=== PATIENT | female | born 1935 | race Caucasian/White ===

== ENCOUNTER 2016-11-26 09:59 | Inpatient (IN) ==
--- NOTE | 2016-11-26 12:31 | EKG Report ---
Test Performed on : 11/26/2016 11:46:05 AM Test Reason : palpitaions, chest discomfort Blood Pressure : / mmHG Vent. Rate : 063 BPM Atrial Rate : 063 BPM P-R Int : 142 ms QRS Dur : 078 ms QT Int : 418 ms P-R-T Axes : 030 035 048 degrees QTc Int : 427 ms Sinus rhythm. with marked sinus arrhythmia. Otherwise normal ECG When compared with ECG of 15-JAN-2016 06:08, premature atrial complexes. are noted T wave amplitude has increased in far lateral precordial leads Clinical Correlation advised Confirmed by Paul Saini DO ([id number]) on 11/29/2016 3:40:02 PM
--- NOTE | 2016-11-26 12:42 | Diag Imaging Result Doc PS360 ---
EXAM: CHEST-2 VIEWS INDICATION: palpitations, chest discomfort TECHNIQUE: 2 views COMPARISON: 01/14/2016 FINDINGS: There is evidence of prior granulomatous disease, stable. The lungs are hyperinflated, stable. The lungs are grossly clear, otherwise. There is no discrete pleural fluid collection or pneumothorax. The cardiomediastinal silhouette and central vasculature are grossly unremarkable. IMPRESSION: Stable COPD changes. No definite acute pathology. Electronically signed by Frantz Ramos 11/26/2016 12:40 PM
[2016-11-26 13:24] LABS: MANUAL DIFF NEEDED? NO
[2016-11-26 13:30] LABS: BASO% 0.3 % (0.0-0.8); EOS# 0.11 X1000 (0.0-0.7); EOS% 1.3 % (0.0-10.0); HEMATOCRIT 39.9 % (37.0-47.0); HEMOGLOBIN 13.1 g/dL (12.0-16.0); IMM GRAN# 0.03 X1000 (0.0-0.04); IMM GRAN% 0.3 % (0.0-0.5); LYMPH# 1.68 X1000 (1.2-3.4); LYMPH% 19.6 % (20.5-51.1); MCH 33.2 PG (27-31); MCHC 32.8 g/dL (33-37); MONO# 0.54 X1000 (0.11-0.59); MONO% 6.3 % (1.7-9.3); MPV 10.4 FL (7.4-10.4); NEUT% 72.2 % (42.2-75.2); PLT 237 X1000 (130-400); RBC 3.95 XMIL (4.2-5.4)
[2016-11-26] MEDS: M.V.I.-12 10 ML, FOLIC ACID 1 MG, MAGNESIUM SULFATE 1 GM, THIAMINE 100 MG in NS 1,000 ML IV SCH (14:34)
[2016-11-26 14:35] LABS: ALBUMIN 4.2 g/dL (3.5-5.0); CALCIUM 8.8 mg/dL (8.8-10.2); POTASSIUM 4.5 mmol/L (3.5-5.1); TOTAL BILIRUBIN 0.22 mg/dL (0.20-1.00); TOTAL PROTEIN 6.6 g/dL (6.3-8.3)
[2016-11-26] MEDS ORDERED: ATIVAN PO PRN (14:42)
[2016-11-26] MEDS: MIRALAX PO SCH ×2 (17:44→20:17)
--- NOTE | 2016-11-26 18:28 | CONSULTATION ---
DATE OF CONSULTATION: 11/26/2016 IMPRESSION: 1. Tachycardic palpitations and shortness of breath with exertion walking across the room on room air. Patient in sinus rhythm with occasional premature atrial complex. 2. Severe chronic obstructive pulmonary disease requiring home oxygen. Patient inconsistently uses home oxygen. 3. History of atrial fibrillation with prior ablation in [place] 4 years ago. 4. Reported history of gastroparesis. The patient has maintained stable weight. Gastric emptying study in 2013 was unremarkable. 5. Chronic cigarette use. It not clear if she still smokes or not. RECOMMENDATIONS: 1. I would measure oxygen saturations when patient ambulates to see if they are dropping and watch her cardiac rhythm at the same time. 2. Importance of smoking cessation discussed. 3. If no arrhythmias manifest, reasonable to discharge the patient to home. HISTORY: This 81-year-old, white female with past history of severe COPD, previous atrial fibrillation treated with ablation in [place] 4 years ago, and gastroparesis was admitted for further evaluation of palpitations and shortness of breath which tended to occur with ambulation short distances across the house. She is a rather vague historian who tends to site her diagnoses rather than describe her symptoms. She relates that for the past week, she has had more shortness of breath with exertion along with sensation that her heart is going fast. There has been no angina nor syncope. She came to the emergency room with foregoing complaints and was admitted for further workup. It is noteworthy that she was hospitalized 10 months ago for evaluation of chest symptoms and had echocardiography showing normal left ventricular systolic function as well as pharmacologic myocardial perfusion study which was negative for ischemia. She seems unaware of her diagnosis of COPD. She also makes it difficult to understand if she still smokes or not. PAST MEDICAL HISTORY: 1. Severe COPD requiring home oxygen. 2. Previous atrial fibrillation. Patient is status post ablation 4 years ago. 3. Reported gastroparesis. Gastric emptying study 2013 reported normal. 4. History of volvulus. 5. History of brain aneurysm. PAST SURGICAL HISTORY: Hysterectomy, carpal tunnel syndrome with bilateral carpal tunnel release, cholecystectomy and ablation of atrial fibrillation done at [facility]. ALLERGIES: She has no known drug allergies. MEDICATIONS PRIOR TO ADMISSION: As listed. SOCIAL HISTORY: She is . She has history of longstanding cigarette use, but is rather vague as to the amount of cigarettes she has smoked and also somewhat vague as to whether or not she still smokes or not. She does not drink alcohol. FAMILY HISTORY: Negative for premature coronary disease. REVIEW OF SYSTEMS: Pulmonary: Noteworthy for exertional dyspnea. She has some nonproductive cough. There has been no orthopnea. Gastrointestinal: Some tendency for postprandial nausea. Constitution: Negative/noncontributory. Remainder of review of systems negative/noncontributory with 14 total systems reviewed. PHYSICAL EXAMINATION: General: This is a thin, elderly female in no distress. Vital signs: Blood pressure 119/56, heart rate 61 and regular. HEENT: Extraocular movements intact. Mucous membranes are moist. Neck: Supple with normal jugular venous pressures suggested on inspection of neck veins. Chest: Auscultation chest reveals diffusely diminished breath sounds. Scant expiratory rhonchi noted that clear with cough. Cardiac: Reveals distant heart sounds. Irregular rate and rhythm is demonstrated without appreciable murmur or gallop. Abdomen: Soft, nontender. Bowel sounds are normal. Extremities: Without edema. Neurologic: Reveals her to be alert and fully oriented. Speech is fluent. Moves all 4 extremities equally well. Skin: Warm and dry. Psychiatric: Reveals her to be mildly anxious. DIAGNOSTIC DATA: ECG demonstrates sinus rhythm with premature atrial complexes. cc: MD Florentin Santos MD
[2016-11-26 19:07] LABS: BE 3.2 mmoll (-3.0-3.0); BLOOD TYPE ARTERIAL; DRAW SITE R BRACHIAL; METHB 1.2 % (0.0-1.5); MODALITY ROOM AIR; O2(CT) 17.9 mL/dL (15.0-23.0); PCO2(98.6) 42 mmHg (35-45); PO2(98.6) 70 mmHg (60-100); SAMPLE BLOOD; SAO2 97.1 % (95.0-100.0); THB 13.7 g/dL (11.5-17.4); pH(98.6) 7.43 (7.35-7.45)
--- NOTE | 2016-11-26 19:37 | HISTORY AND PHYSICAL ---
HISTORY OF PRESENT ILLNESS: Ms. Aguilar is an 81-year-old white female who is admitted with persistent nausea as well as severe weakness, shortness of breath and palpitations as well as dehydration. She has not been eating. She has some persistent nausea on account of gastroparesis which had been diagnosed at [facility] and by here in [place]. She has been on different medications for it without much help. 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 PAST MEDICAL HISTORY: She has a history of hypertension and COPD. SOCIAL HISTORY: She had been a smoker in the past, however, for the last 10 years she has not been smoking. She does not drink. ALLERGIES: She is not allergic to any medications. REVIEW OF SYSTEMS: General: She is weak. Cardiopulmonary: Negative for chest pain. However, she has recurrent palpitations and has mild chest discomfort at times. Gastrointestinal: She has nausea. She cannot eat well. Genitourinary: Negative. Endocrine: Negative. Breasts: Negative. Neurological: Unremarkable except for nervousness. MEDICATIONS: Atenolol 12.5 mg daily, aspirin 81 mg daily, lorazepam 0.25 mg daily, polyethylene glycol 17 g daily. PHYSICAL EXAMINATION: VITAL SIGNS: Temperature normal, pulse 70 per minute, respiratory rate 18 per minute, blood pressure 107/51. HEENT: Head normocephalic. PERRLA. Fundus examination not done. ENT examination unremarkable. NECK: JVP normal. There is no evidence of lymphadenopathy, thyroid enlargement. EXTREMITIES: No evidence of pedal edema, calf tenderness, anemia, cyanosis or clubbing. Pedal pulses well felt. BREASTS EXAMINATION: Normal. CHEST: Normal on inspection. LUNGS: Clear on auscultation with occasional wheezing. HEART: PMI in the normal position. Heart sounds normal. No murmur, gallop or rub noted. ABDOMEN: Nondistended. Hernial orifices normal. There is some tenderness in the epigastric area. No guarding, rigidity, free fluid, masses, or organomegaly. Bowel sounds normal. RECTAL EXAMINATION: Deferred. CENTRAL NERVOUS SYSTEM: Higher functions normal. Cranial nerves normal. Motor and sensory system examination unremarkable. Deep tendon reflexes normal. Plantars downgoing. SKULL AND SPINE EXAMINATION: Normal for age. No cerebellar signs or signs of meningeal irritation. LOCOMOTOR EXAMINATION: Unremarkable. SKIN EXAMINATION: Unremarkable except for the presence of dehydration with loss of skin turgor and dryness of mucous membranes. IMPRESSION: Significant dehydration, weakness, palpitations, chronic obstructive pulmonary disease and severe gastroparesis. PLAN: Start IV fluids. She has seen Dr. Martins, oil agent. cc: Florentin Valle MD
[2016-11-27] MEDS: D5 1/2 NS + KCL 10 MEQ 1,000 ML IV SCH ×3 (00:47→20:40)
[2016-11-27] MEDS: ZOFRAN PO PRN (02:40)
[2016-11-27] MEDS: TENORMIN PO SCH ×2 (05:04→09:48)
--- NOTE | 2016-11-27 07:45 | EKG Report ---
Test Performed on : 11/27/2016 06:08:52 AM Test Reason : cp Blood Pressure : / mmHG Vent. Rate : 057 BPM Atrial Rate : 057 BPM P-R Int : 156 ms QRS Dur : 078 ms QT Int : 438 ms P-R-T Axes : 090 054 050 degrees QTc Int : 426 ms Sinus bradycardia. Possible Anterior infarct , age undetermined Abnormal ECG When compared with ECG of 26-NOV-2016 11:46, (Unconfirmed) No significant change was found Confirmed by Paul Saini DO ([id number]) on 11/29/2016 3:48:02 PM
[2016-11-27] MEDS: M.V.I.-12 10 ML, FOLIC ACID 1 MG, MAGNESIUM SULFATE 1 GM, THIAMINE 100 MG in NS 1,000 ML IV SCH ×2 (09:46→14:15)
[2016-11-27] MEDS: ASPIRIN PO SCH (09:47)
[2016-11-27] MEDS: CENTRUM TABLET PO SCH (09:47)
[2016-11-27 11:42] LABS: URINE MICRO REVIEW NEEDED? NO; URINE SOURCE CLEAN CATCH
[2016-11-27 11:53] LABS: BILIRUBIN URINE NEGATIVE (NEGATIVE); BLOOD URINE NEGATIVE (NEGATIVE); COLOR YELLOW; GLUCOSE URINE NEGATIVE (NEGATIVE); LEUKOCYTES URINE NEGATIVE (NEGATIVE); NITRITE URINE NEGATIVE (NEGATIVE); PROTEIN URINE NEGATIVE (NEGATIVE); TURBIDITY URINE CLEAR (CLEAR); UROBILINOGEN URINE NORMAL (NORMAL)
[2016-11-27 12:45] LABS: SP GRAVITY URINE 1.004
[2016-11-27 12:47] LABS: UR EPITHELIAL CELLS <10 /HPF (<10); URINE BACTERIA NEGATIVE /HPF; URINE RBC <10 /HPF (<10); URINE WBC <10 /HPF (<10)
[2016-11-27] MEDS: MIRALAX PO SCH (20:40)
--- NOTE | 2016-11-28 03:43 | PROGRESS NOTE ---
DATE: 11/27/2016 Ms Aguilar is doing better. She is getting some IV fluids. She has mild dehydration. We will repeat the Chem-7 in the morning. She also has COPD but ABGs are satisfactory. We will continue with the current management. Repeat BMP in the morning. -2 cc: Florentin Valle MD
[2016-11-28] MEDS: ZOFRAN PO PRN (04:55)
[2016-11-28] MEDS: D5 1/2 NS + KCL 10 MEQ 1,000 ML IV SCH (06:20)
[2016-11-28 06:41] LABS: AGAP 8; BUN 13 mg/dL (8-22); CALCIUM 8.9 mg/dL (8.8-10.2); CHLORIDE 102 mmol/L (98-107); COSMO 275; POTASSIUM 4.5 mmol/L (3.5-5.1); SODIUM 138 mmol/L (136-145); TCO2 28 mmol/L (25-35)
[2016-11-28 08:12] LABS: FREE T4 1.21 ng/dL (0.93-1.70)
[2016-11-28] MEDS: TENORMIN PO SCH (09:23)
[2016-11-28] MEDS: ASPIRIN PO SCH (09:23)
[2016-11-28] MEDS: CENTRUM TABLET PO SCH (11:46)
--- NOTE | 2016-11-28 16:02 | PROGRESS NOTE ---
DATE: 11/28/2016 SUBJECTIVE: Ms. Aguilar is doing better. She denied any chest pain, palpitation. The patient is ambulating well. Oral intake is fair. The patient claims she does not like hospital food. She will do much better once she goes home. OBJECTIVE: Vitals signs stable. The patient is ambulating well. Cardiology consult reviewed. As soon as I walked in, she wanted to go home. I did some blood tests, results reviewed. PHYSICAL EXAMINATION: Lungs: Bilateral good air entry present. CVS: S1 and S2 heard. Abdomen: Soft, nontender. Bowel sounds present. Extremities: No acute DVT. ARCH SUPPORT TECHNICIAN: Alert, awake, able to move all 4 limbs. ASSESSMENT AND PLAN: Overall patient received maximum benefit of hospitalization. The patient admitted with weakness, dehydration, COPD, gastroparesis. Clinically patient is stable to be discharged. The patient is eager to go home and her O2 saturation on room air is 100%. I am going to discharge patient home. At family's request, I am going to recommend home health, follow up with Dr. Valle next week. Fall precaution. In case of more distress, call us back or go to emergency room. cc: MD Florentin Hutchins MD
[2016-11-28 17:00] VITALS: BP 125/58
--- NOTE | 2016-12-02 16:42 | DISCHARGE SUMMARY ---
ADMISSION DATE: 11/26/2016 DISCHARGE DATE: 11/28/2016 HISTORY: Ms. Aguilar, who is an 81-year-old white female, was admitted because of dehydration, gastroparesis, with persistent nausea. LABORATORY DATA: In the hospital, CBC was unremarkable. Her arterial blood gases revealed a pO2 70, pCO2 was 42, pH was normal. They were unremarkable. Initial BUN was 21, repeat BUN was 13. Urinalysis was negative. HOSPITAL COURSE: She had palpitations. Cardiac consultation was obtained, upon her request, and it was thought that it was kind of either anxiety or COPD-related. IV fluids were given, and the dehydration was cleared up. She was finally discharged upon her request. She still had nausea at the time of discharge. FINAL DIAGNOSES: 1. Gastroparesis. 2. Dehydration. cc: Florentin Valle MD
== END 2016-11-28 17:27 | disposition home or self-care (01) ==
LOC: DIRADM 09:59 → 3N 10:56
PROVIDERS: ADMIT Internal Medicine; ATTEND Internal Medicine